=== PATIENT | female | born 1970 | race Caucasian/White ===

== ENCOUNTER → 2017-05-08 | Outpatient (REF) | LOC: WSOH 14:30 | DX: Z02.89 Encounter for other administrative examinations (principal) ==

== ENCOUNTER 2017-11-09 14:07 | Emergency (ER) | payer OTHER ==
[~2017-11-09] VITALS: Wt 95.5 kg
[2017-11-09 14:11] VITALS: TEMP 98.6
[2017-11-09 14:25] VITALS: BP 187/101
[2017-11-09] MEDS ORDERED: ZYRTEC 10MG10 MG PO (14:47)
[2017-11-09] MEDS ORDERED: ULTRAM 50MG TAB50 MG PO (14:47)
[2017-11-09] MEDS ORDERED: FIORICET 325 MG1 TA1 PO (14:47)
[2017-11-09 15:29] LABS: BASO # 0.1 (0.0-0.2); BASO % 0.5 % (0.0-2.0); EOS # 0.2 (0.0-0.7); EOS % 1.6 % (0-4.0); GRAN # 5.2 (1.4-6.5); GRAN % 56.4 % (42.2-75.2); HEMATOCRIT 41.6 % (37.0-47.0); HEMOGLOBIN 14.4 g/dl (12.5-16.0); LYMPH # 2.9 (1.2-3.4); LYMPH % 32.1 % (20.0-51.0); MEAN CELL VOLUME 87 fl (80.0-100.0); MEAN CORPUSCULAR HEMOGLOBIN 30 pg (27.0-31.0); MEAN CORPUSCULAR HGB CONC 35 g/dl (33.0-37.0); MEAN PLATELET VOLUME 10.3 fl (7.4-10.4); MONO # 0.8 (0.1-0.6); PLATELET COUNT 311 K/mm3 (130-400); RED BLOOD COUNT 4.79 M/mm3 (4.10-5.30); REDCELL DISTRIBUTION WIDTH-CV 12.8 % (11.5-14.5)
[2017-11-09 16:13] LABS: C-REACTIVE PROTEIN 2.4 mg/dL (0.0-0.9); CALCIUM 8.9 mg/dL (8.4-10.2); CREATININE, serum 0.56 mg/dL (0.52-1.25); POTASSIUM 3.5 mmol/L (3.4-5.0)
[2017-11-09] MEDS ORDERED: VOLTAREN 75 DR75 MG PO (16:52)
[2017-11-09] MEDS ORDERED: LIDODERM 5% PATC1 EA TP (16:52)
[2017-11-09 17:21] VITALS: PULSE 78
== END 2017-11-09 17:15 | disposition home or self-care (01) ==
LOC: COL.ER 14:07
PROVIDERS: Emergency Medicine
DX: M75.51 Bursitis of right shoulder (principal); G43.909 Migraine, unspecified, not intractable, without status migrainosus; Z90.710 Acquired absence of both cervix and uterus
CPT/HCPCS: J1885; J2360; J2405; J2765; J2930; J3010; J7040